=== PATIENT | male | born 1970 | race Caucasian/White ===

== ENCOUNTER 2016-10-14 17:12 | Emergency (ER) | payer MEDICAID ==
[2016-10-14 17:15] VITALS: BMI 39.9
[2016-10-14] MEDS: Aspirin 325 mg EC Tablets PO STA ×2 (17:40→18:23)
--- NOTE | 2016-10-14 17:40 | C.PDOC ---
History Of Present Illness Patient is a 45 y/o male that presents to the emergency department for evaluation of pressure in his chest, and shortness of breath. Pt states that he was eating at 3:00am this morning, when he suddenly felt the pressure in his chest, and then became short of breath, with associated dizziness, and lightheadedness. Pt felt similar symptoms again later today. Pt also complains of left leg numbness since this morning. Pt was seen by his PMD with similar complaints earlier, and was told to lose weight, and to reduce salt in his diet. Pt states he has been eating only 5% of what he normally used to eat since the past week. Of note, pt was a smoker, and states he stopped smoking 3 months ago. Otherwise, pt denies any cough, n/v/d, current chest pain, or shortness of breath, or any other associated symptoms at this time. Time Seen by Provider: 10/14/16 17:23 Chief Complaint (Nursing): Shortness Of Breath History Per: Patient History/Exam Limitations: no limitations Onset/Duration Of Symptoms: Hrs Current Symptoms Are (Timing): Still Present Quality: Pressure Associated Symptoms: denies: Fever, Chills, Sweating, Bloody Cough, Heart Racing , Leg/Calf Pain, Ankle/Leg Swelling, Anxiety, Tingling In Hands Or Face, Musle Spasms In Hands Or Feet Recent travel outside of the [place]: No Additional History Per: Patient Past Medical History Reviewed: Historical Data, Nursing Documentation, Vital Signs Vital Signs: Last Vital Signs Temp 98.1 F 10/14/16 17:15 Pulse 71 10/14/16 17:15 Resp 20 10/14/16 17:36 BP 137/82 10/14/16 17:15 Pulse Ox 100 10/14/16 19:09 - Medical History PMH: HTN Family History: States: No Known Family Hx - Social History Hx Alcohol Use: No Hx Substance Use: No - Immunization History Hx Tetanus Toxoid Vaccination: No (pt unsure) Hx Influenza Vaccination: No Hx Pneumococcal Vaccination: No Review Of Systems Except As Marked, All Systems Reviewed And Found Negative. Constitutional: Negative for: Fever, Chills Cardiovascular: Negative for: Chest Pain, Palpitations, Edema, Light Headedness Respiratory: Negative for: Cough, Shortness of Breath, Sputum, Wheezing Gastrointestinal: Negative for: Nausea, Vomiting, Abdominal Pain Musculoskeletal: Negative for: Back Pain, Leg Pain Neurological: Positive for: Numbness (left leg). Negative for: Weakness, Headache, Dizziness Physical Exam - Physical Exam Appears: Non-toxic, No Acute Distress Skin: Normal Color, Warm, Dry Head: Atraumatic, Normacephalic Eye(s): bilateral: Normal Inspection, EOMI Neck: Normal ROM, Supple Chest: Symmetrical, No Tenderness Cardiovascular: Rhythm Regular, No Murmur Respiratory: Normal Breath Sounds, No Rales, No Rhonchi, No Wheezing Gastrointestinal/Abdominal: Soft, No Tenderness Extremity: Normal ROM, No Tenderness, No Calf Tenderness, Capillary Refill (< 2 sec.), No Deformity, No Swelling Extremity: Bilateral: Atraumatic, Normal Color And Temperature Neurological/Psych: Oriented x3, Normal Speech, Normal Cognition, Normal Motor, Normal Sensation ED Course And Treatment - Laboratory Results Result Diagrams: 10/14/16 17:41 10/14/16 17:41 Lab Interpretation: No Acute Changes (K+ 3.5, Troponin normal) ECG: Interpreted By Mi ECG Rhythm: Sinus Rhythm ECG Interpretation: No Acute Changes (LVH), No Changes From Prior (done 05/15/2016 ) O2 Sat by Pulse Oximetry: 100 (on RA) Pulse Ox Interpretation: Normal - Radiology CXR: Interpreted by Mi CXR Interpretation: Yes: No Acute Disease Progress Note: Labs, EKG, CXR ordered and reviewed. Pt was given Aspirin in the ER. Reevaluation Time: 19:08 Reassessment Condition: Improved (Patient remains comfortable. Kdur given for 3.5 K+) - Physician Consult Information Time Consulting Physician Contacted: 19:09 Physician Contacted: Gianni Muro Outcome Of Conversation: He knows the patient well and will follow up in the office on Sunday. Disposition Counseled Patient/Family Regarding: Studies Performed, Diagnosis, Need For Followup - Disposition Referrals: Gianni Muro MD [Non-Staff] - Disposition: HOME/ ROUTINE Disposition Time: 19:48 Condition: IMPROVED Additional Instructions: See your doctor in the office on Sunday. Return to the ED if pain, shortness of breath or additional symptoms occur. Instructions: Chest Pain (ED) - Clinical Impression Clinical Impression: Chest pain - Scribe Statement The provider has reviewed the documentation as recorded by the Vic Castañeda Provider Attestation: All medical record entries made by the Colletteibmila were at my direction and personally dictated by me. I have reviewed the chart and agree that the record accurately reflects my personal performance of the history, physical exam, medical decision making, and the department course for this patient. I have also personally directed, reviewed, and agree with the discharge instructions and disposition.
[2016-10-14 17:44] LABS: BASO # 0.1 K/uL (0.0-0.2); BASO % 1.2 % (0.0-2.0); EOS # 0.2 K/uL (0.0-0.7); EOS % 2.3 % (0.0-4.0); HEMATOCRIT 41.7 % (35.0-51.0); LYMPH # 3.3 K/uL (1.0-4.3); LYMPH % 40.5 % (20.0-40.0); MEAN CELL VOLUME 78.9 fL (80.0-94.0); MEAN CORPUSCULAR HEMOGLOBIN 25.9 pg (27.0-31.0); MEAN CORPUSCULAR HGB CONC 32.8 g/dL (33.0-37.0); MONO # 0.5 K/uL (0.0-0.8); MONO % 5.5 % (0.0-10.0); NRBC % 0.1 % (0.0-2.0); RED CELL DISTRIBUTION WIDTH 14.8 % (11.5-14.5); WHITE BLOOD COUNT 8.2 K/uL (4.8-10.8)
[2016-10-14 17:56] LABS: RBC URINE < 1 /hpf (0-3); URINE BILIRUBIN NEGATIVE (NEGATIVE); URINE BLOOD NEGATIVE (NEGATIVE); URINE COLOR Colorless (YELLOW); URINE GLUCOSE (UA) NORMAL (Normal); URINE KETONE NEGATIVE (NEGATIVE); URINE LEUKOCYTE ESTERASE NEG Leu/uL (Negative); URINE PROTEIN NEGATIVE (NEGATIVE); URINE UROBILINOGEN NORMAL mg/dL (0.2-1.0)
[2016-10-14 18:02] LABS: CHLORIDE 96 mmol/L (98-107); POTASSIUM 3.5 mmol/L (3.6-5.2); SODIUM 136 mmol/L (132-148)
[2016-10-14 18:04] LABS: BILIRUBIN,TOTAL 0.6 mg/dL (0.2-1.3); CARBON DIOXIDE 30 mmol/L (22-30); GFR AFRICAN-AMERICAN > 60
[2016-10-14 18:05] LABS: ALB/GLOB RATIO 1.2 (1.0-2.1); ALKALINE PHOSPHATASE 74 U/L (38-126); ALT/SGPT 37 U/L (21-72); AST/SGOT 39 U/L (17-59); BLOOD UREA NITROGEN 12 mg/dL (9-20); GLUCOSE,RANDOM 147 mg/dL (75-110); TOTAL PROTEIN 8.1 g/dL (6.3-8.3)
[2016-10-14] MEDS ORDERED: Potassium Chloride 20 mEq ER Tab PO STA (18:31)
[2016-10-14] MEDS ORDERED: Potassium Chloride 20 mEq ER Tab PO ONE (18:47)
--- NOTE | 2016-10-14 19:50 | RAD ---
PROCEDURE: CHEST RADIOGRAPH, 1 VIEW HISTORY: chest pain COMPARISON: None available. FINDINGS: LUNGS: Poor inspiration with low lung volumes and crowded bronchovascular markings and minor bibasilar atelectasis. PLEURA: No pneumothorax or pleural fluid seen. CARDIOVASCULAR: Normal. OSSEOUS STRUCTURES: No significant abnormalities. VISUALIZED UPPER ABDOMEN: Normal. OTHER FINDINGS: None. IMPRESSION: Poor inspiration with low lung volumes and crowded bronchovascular markings and minor bibasilar atelectasis.
[2016-10-14 20:02] VITALS: BP 123/77; PULSE 59; RESP 16; TEMP 98; O2SAT 99
--- NOTE | 2016-10-20 16:41 | CARD ---
APPROVED REPORT EKG Measurement Heart [id number] <Conclusion> Normal sinus rhythm Voltage criteria for left ventricular hypertrophy Abnormal ECG
== END 2016-10-14 20:03 | disposition home or self-care (01) ==
LOC: C.ER 17:12
DX: R07.9 Chest pain, unspecified (principal); E87.6 Hypokalemia